=== PATIENT | male | born 1940 | race Caucasian/White ===

== ENCOUNTER 2022-01-27 07:15 | Day surgery (SDC) | payer OTHER, BC ==
[2022-01-25 10:23] VITALS: BMI 26.2
[2022-01-27] MEDS ORDERED: MIDAZOLAM HCL 2 MG/2 ML SINGLE DOSE VIAL ONE (09:45)
[2022-01-27] MEDS ORDERED: ROPIVACAINE HCL 0.5% 30ML VIAL ONE (09:45)
[2022-01-27] MEDS ORDERED: EPINEPHrine 1:1,000 1,000 MCG/ML ML ONE (09:58)
[2022-01-27] MEDS ORDERED: SEVOFLURANE 250 ML BTL ONE (09:58)
[2022-01-27] MEDS ORDERED: PROPOFOL 40 ML ONE (10:01)
[2022-01-27] MEDS ORDERED: KETOROLAC TROMETHAMINE 30 MG/1 ML VIAL ONE (10:14)
[2022-01-27] MEDS ORDERED: DEXAMETHASONE SOD PHOSPHATE 4 MG/1 ML VIAL ONE (10:14)
[2022-01-27] MEDS ORDERED: ONDANSETRON 4 MG/2 ML VIAL ONE (10:14)
[2022-01-27] MEDS ORDERED: ceFAZolin SODIUM 1 GM VIAL ONE (10:14)
[2022-01-27] MEDS ORDERED: LIDOCAINE HCL/PF 2% SDV 5ML VIAL ONE (10:16)
[2022-01-27] MEDS ORDERED: ACETAMINOPHEN 325 MG TABLET (FP) PO PRN (11:10)
[2022-01-27] MEDS ORDERED: ONDANSETRON 4 MG/2 ML VIAL IVPUSH PRN (11:10)
[2022-01-27] MEDS ORDERED: oxyCODONE HCL 5 MG TABLET PO PRN ×2 (11:10)
[2022-01-27 11:47] VITALS: RESP 16; TEMP 97.8
[2022-01-27 11:52] VITALS: BP 130/78; PULSE 78
== END 2022-01-27 11:50 | disposition home or self-care (01) ==
LOC: FASU 07:15
PROVIDERS: ATTEND Orthopaedic Surgery
PROC: 0LM24ZZ Reattachment of Left Shoulder Tendon, Percutaneous Endoscopic Approach (ICD-10-PCS; 2022-01-27)
PROC: 0RNK4ZZ Release Left Shoulder Joint, Percutaneous Endoscopic Approach (ICD-10-PCS; 2022-01-27)
PROC: 0PBB4ZZ Excision of Left Clavicle, Percutaneous Endoscopic Approach (ICD-10-PCS; principal; 2022-01-27 10:32)
PROC: 0RBK4ZZ Excision of Left Shoulder Joint, Percutaneous Endoscopic Approach (ICD-10-PCS; 2022-01-27 10:32)
DX: M75.122 Complete rotator cuff tear or rupture of left shoulder, not specified as traumatic (principal); M75.02 Adhesive capsulitis of left shoulder; M75.42 Impingement syndrome of left shoulder; M19.012 Primary osteoarthritis, left shoulder; S43.432A Superior glenoid labrum lesion of left shoulder, initial encounter; X58.XXXA Exposure to other specified factors, initial encounter; Y93.9 Activity, unspecified; Y92.9 Unspecified place or not applicable; M65.812 Other synovitis and tenosynovitis, left shoulder
CPT/HCPCS: C1713; C1889